=== PATIENT | female | born 1945 | race Caucasian/White ===

== ENCOUNTER → 2019-05-24 09:34 | Outpatient (CLI) | payer MEDICARE, BC, SELFPAY ==
[2019-05-24 12:23] LABS: Absolute Lymphocyte Count 1.55 X10^3/uL (0.83-4.51); Absolute Neutrophil Count 4.3 X10^3/uL (2.0-7.7); Basophil# 0.07 X10^3/uL; Basophil% 1.1 % (0-1); Eosinophil# 0.28 X10^3/uL; Eosinophils% 4.2 % (0-5); Hematocrit 43.6 % (37-47); Hemoglobin 14.3 g/dL (12.0-15.0); Lymphocyte # 1.55 X10^3/ul (4.0); Lymphocyte % 23.4 % (19-41); Mean Corp Hgb Conc 32.8 g/dL (32-36); Mean Corpuscular Hgb 31.9 pg (27.0-32.0); Mean Corpuscular Volume 97.3 fL (81-99); Mean Platelet Vol. 11.8 fl (6.2-12.0); Monocyte# 0.45 X10^3/uL; Monocyte% 6.8 % (0-10); NRBC Flagged by Analyzer 0 % (0-5); Neutrophil # 4.25 X10^3/uL (2.7-7.7); Neutrophil % 64.2 % (47-70); Platelet Count 233 K/mm3 (150-450); RBC Distribution Width CV 11.9 % (11.6-14.6); RBC Distribution Width SD 42.5 fl (35.1-43.9); Red Blood Count 4.48 M/mm3 (4.2-5.4); White Blood Count 6.6 K/mm3 (4.4-11.0)
[2019-05-24 12:42] LABS: ALB/GLOB Ratio 0.9 RATIO (0.9-2.4); AST(SGOT) 16 U/L (15-37); Alanine Aminotransfer ALT/SGPT 23 U/L (13-56); Albumin, Serum 3.4 g/dL (3.2-5.0); Alkaline Phosphatase 85 U/L (45-117); Anion Gap 10 (5-15); BUN 27 mg/dL (7-18); Calcium,Total 8.4 mg/dL (8.5-10.1); Chloride 110 mmol/L (98-107); Cholesterol 171 mg/dL (200); EST Glomerular Filtration Rate 65 mL/min (>60); Est Glom Filt Rate - Afr Amer 79 mL/min (>60); Globulin 3.7 g/dL (2.2-4.2); Glucose 147 mg/dL (74-106); High Density Lipoprotein 50 mg/dL; Potassium 3.9 mmol/L (3.5-5.1); Protein, Total 7.1 g/dL (6.4-8.2); Sodium Level 142 mmol/L (136-145); Thyroid Stim Hormone (TSH) 0.86 uIU/mL (0.358-3.74); Triglycerides 109 mg/dL; Very Low Density Lipoprotein 22 mg/dL (5-40)
== END ==
PROVIDERS: Visit Provider Family Medicine
DX: E11.9 Type 2 diabetes mellitus without complications (principal); I10 Essential (primary) hypertension
CPT/HCPCS: 36415; 80053; 80061; 84443; 85025

== ENCOUNTER → 2020-04-03 09:30 | Outpatient (CLI) | payer MEDICARE, BC, SELFPAY ==
--- NOTE | 2020-04-03 09:34 | BI_ITS ---
MAMMOGRAPHY - BILATERAL DIAGNOSTIC REASON FOR EXAM: Female, 74 years old. FAM HX MOTHER AGE 50S, SISTER AGE 60 -- RT PAIN 3 WEEKS AGO -ENTIRE BREAST -PAIN HAS SUBSIDED -- NO SX -- LT KERATOSIS MARKED -- NO PRIORS AVAILABLE PERTINENT HISTORY: Non-contributory. TECHNIQUE: Digital examination. Mediolateral oblique (MLO) and craniocaudad (CC) views of both breasts were obtained, along with 3-D tomosynthesis. CAD: CAD was performed on this study. COMPARISON: None. FINDINGS: Breast Composition: There are scattered areas of fibroglandular density. There are no dominant masses or suspicious calcifications. No other significant abnormalities are identified. However, because the patient complains of right breast pain and there is a subtle asymmetric density in the central right breast, further evaluation with ultrasound recommended. No suspicious findings in the left breast. BI/DIAG MAMM W/CAD, BILAT IMPRESSION: Further ultrasonographic evaluation recommended, as described above. Recall Side: Right Breast ASSESSMENT CATEGORY: BIRADS Category 0: Incomplete. Need additional imaging evaluation. A letter regarding these results will be sent to the patient by the facility within 30 days. FOLLOW UP RECOMMENDATION: Ultrasound Recommended. (I) Approximately 10% of breast cancers are not detected by mammography. A normal mammogram should not delay biopsy of a clinically suspicious abnormality. Electronically Signed: Kenn Vidal MD at 12:39 EDT , Service support ,
--- NOTE | 2020-04-03 09:34 | US_ITS ---
STUDY: ULTRASOUND BREAST - RIGHT REASON FOR EXAM: Female, 74 years old. Pain TECHNIQUE: Axial and longitudinal images of the RIGHT breast were performed with a high resolution ultrasound transducer. # OF IMAGES: 43 COMPARISON: None. FINDINGS: RIGHT Breast: Sonographic evaluation of the right breast shows normal dense fibroglandular tissue. There are no suspicious shadowing solid lesion or architectural distortion. There is a hypoechoic lymph node at 10:00 measuring 0.5 x 0.6 x 0.2 cm. US/Breast Limited Unilateral IMPRESSION: No suspicious sonographic findings ASSESSMENT CATEGORY: BIRADS Category 2: Benign. A letter regarding these results will be sent to the patient by the facility within 30 days. Electronically Signed: Kenn Vidal MD at 12:37 EDT , Service support ,
== END ==
PROVIDERS: PCP Family Medicine; Referring Provider Family Medicine; Visit Provider Family Medicine
DX: N64.4 Mastodynia (principal)
CPT/HCPCS: 76642; 77062; 77066; G0279

== ENCOUNTER → 2022-04-25 | Outpatient (CLI) | payer MEDICARE, BC, SELFPAY ==
[2022-04-25 12:13] LABS: Absolute Lymphocyte Count 2.41 X10^3/uL (0.83-4.51); Absolute Neutrophil Count 5.5 X10^3/uL (2.0-7.7); Basophil# 0.08 X10^3/uL; Basophil% 0.9 % (0-1); Eosinophil# 0.34 X10^3/uL; Eosinophils% 3.8 % (0-5); Hematocrit 44.3 % (37-47); Hemoglobin 14.5 g/dL (12.0-15.0); Lymphocyte # 2.41 X10^3/ul (0.83-4.51); Lymphocyte % 26.9 % (19-41); Mean Corp Hgb Conc 32.7 g/dL (32-36); Mean Corpuscular Hgb 31.3 pg (27.0-32.0); Mean Corpuscular Volume 95.7 fL (81-99); Mean Platelet Vol. 11.3 fl (6.2-12.0); Monocyte# 0.54 X10^3/uL; NRBC Flagged by Analyzer 0 % (0-5); Neutrophil # 5.54 X10^3/uL (2.7-7.7); Platelet Count 257 K/mm3 (150-450); RBC Distribution Width CV 12.3 % (11.6-14.6); RBC Distribution Width SD 43.1 fl (35.1-43.9); Red Blood Count 4.63 M/mm3 (4.2-5.4)
[2022-04-25 12:25] LABS: ALB/GLOB Ratio 0.8 RATIO (0.9-2.4); AST(SGOT) 19 U/L (15-37); Alanine Aminotransfer ALT/SGPT 21 U/L (13-56); Albumin, Serum 3.4 g/dL (3.2-5.0); Alkaline Phosphatase 89 U/L (45-117); Anion Gap 8 (5-15); BUN 19 mg/dL (7-18); BUN/Creat Ratio 17.4 RATIO (10-20); Calcium,Total 8.9 mg/dL (8.5-10.1); Chloride 107 mmol/L (98-107); Cholesterol 220 mg/dL (200); Creatinine, Serum 1.09 mg/dL (0.55-1.02); EST Glomerular Filtration Rate 52 mL/min (>60); Est Glom Filt Rate - Afr Amer 63 mL/min (>60); Glucose 205 mg/dL (74-106); High Density Lipoprotein 46 mg/dL; Potassium 3.9 mmol/L (3.5-5.1); Protein, Total 7.4 g/dL (6.4-8.2); Sodium Level 138 mmol/L (136-145); Triglycerides 191 mg/dL; Very Low Density Lipoprotein 38 mg/dL (5-40)
== END | disposition home or self-care (01) ==
LOC: MTLAB 11:03
PROVIDERS: PCP Family Medicine; Referring Provider Family Medicine; Visit Provider Family Medicine
DX: E11.9 Type 2 diabetes mellitus without complications (principal); I10 Essential (primary) hypertension
CPT/HCPCS: 36415; 80053; 80061; 85025

== ENCOUNTER → 2022-05-17 | Outpatient (CLI) | payer MEDICARE, BC, SELFPAY ==
--- NOTE | 2022-05-17 10:05 | US_ITS ---
EXAM: US ABDOMEN LIMITED, RIGHT UPPER QUADRANT CLINICAL INDICATION: RUQ PAIN TECHNIQUE: Real-time ultrasound of the right upper quadrant with image documentation. This report was created using [employer] report generation technology. COMPARISON: None. FINDINGS: LIVER: The liver measures 17.8 cm. The liver is increased in echogenicity compatible fatty infiltration. No intrahepatic biliary ductal dilation. GALLBLADDER: Gallbladder wall measures 2 mm. No shadowing gallstone. No pericholecystic fluid. Negative sonographic Cisneros''s sign. COMMON BILE DUCT: Common bile duct measures 3 mm. The proximal common bile duct is within normal limits for the patient''s age. PANCREAS: Unremarkable as visualized. No focal abnormality is demonstrated in the pancreas. No pancreatic ductal dilatation. RIGHT KIDNEY: The right kidney measures 10.4 x 4.8 x 5.3 cm. There is a 4 x 9 mm nonobstructing stone in the right kidney. There is a 9 x 9 mm cyst in the right kidney. US/Abdomen Limited IMPRESSION: Fatty infiltration of the liver. There are small right renal cysts and a nonobstructing stone. No acute abnormalities are identified. Electronically Signed: Aden Berrios MD at 12:28 EDT ,
== END | disposition home or self-care (01) ==
LOC: US 09:59
PROVIDERS: PCP Family Medicine; Visit Provider Family Medicine
DX: R10.11 Right upper quadrant pain (principal)
CPT/HCPCS: 76705

== ENCOUNTER → 2022-05-28 | Outpatient (CLI) | payer MEDICARE, BC, SELFPAY ==
--- NOTE | 2022-05-28 08:01 | CT_ITS ---
INDICATION: ABD PAIN EXAMINATION: CT ABDOMEN AND PELVIS WITH CONTRAST - CT Abdomen And Pelvis W/ Contrast Injection TECHNIQUE: Helically acquired images were obtained of the abdomen and pelvis following IV contrast. A radiation dose optimization technique was used for this scan. IV Contrast dosage and agent: 100 mL of [id number]. Oral contrast: YES, Redicat. COMPARISON: None. FINDINGS: LOWER CHEST: Lung bases are clear. No cardiomegaly or pericardial effusion. LIVER: Homogeneous. No focal mass. GALLBLADDER AND BILIARY TREE: Suggestion of multiple noncalcified stones within the neck of the gallbladder. No gallbladder distension or wall edema. No intra- or extrahepatic biliary ductal dilation. PANCREAS: Atrophic changes visualized in the pancreas. No focal cystic or solid mass. SPLEEN: A 3.8 cm low-attenuation lesion suggestive of a cyst with a thick calcified capsule is visualized on sagittal series 602 image 124 in the left upper quadrant along the anterior superior aspect of the spleen adjacent to a focal wedge-shaped area of low attenuation seen on coronal series 602 image 131. Normal size without focal cystic or solid mass. ADRENAL GLANDS: No nodules. KIDNEYS AND URETERS: Bilateral parapelvic cysts are visualized. Mild fullness visualized in the extrarenal pelvis is visualized bilaterally, subtle increased attenuation visualized in the right extrarenal pelvis. A cortical defect is visualized in the lateral aspect of the midpole of the right kidney visualized on axial series 2 image 46 with a coarse overlying calcification measuring approximately 0.6 cm. Normal renal size and position. No hydronephrosis. Focal soft tissue prominence visualized in the mid right ureter with wall enhancement seen on axial series 2 image 71, no evidence of obstructing stone is visualized. Note is made that the distal ureters not visualized due to extensive streak artifact from the bilateral hip prosthesis. PERITONEUM: No ascites or free air. No other fluid collection. BOWEL: Marked thickening of the wall of the stomach is visualized most prominent in the distal stomach. 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 The remainder of the small bowel loops demonstrate no acute pathology. The appendix is visualized and is unremarkable. Abundance of stool visualized in the large bowel, scattered diverticular disease is visualized. Marked thickening of the wall of the rectosigmoid with extensive diverticular disease is visualized on axial series 2 image 86 but no significant stranding of the adjacent fat planes is seen to suggest acute diverticulitis. The appendix is visualized and is unremarkable. No stomach or bowel distension. No focal inflammatory change. LYMPH NODES: No enlarged mesenteric or retroperitoneal lymph nodes. VESSELS: Aorta is non-dilated. URINARY BLADDER: Thickening of the wall of the urinary bladder is visualized. Subtle prominent visualization of the bladder due to extensive streak artifact, ureterovesical junctions and distal ureters are not visualized. REPRODUCTIVE ORGANS: Limited evaluation of the pelvis due to streak artifact. ABDOMINAL WALL: No discrete abdominal or pelvic wall hernia. BONES: Extensive degenerative bone changes visualized. No lytic or blastic abnormality. Bilateral hip prosthesis visualized with streaky artifact obscuring the pelvis. 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 Subtle prominence and irregularity seen in the right extrarenal pelvis and the right mid ureter would recommend further evaluation to rule out masses. Extensive bowel wall thickening and diverticular disease visualized in the sigmoid colon but no evidence of acute diverticulitis is visualized. Abundance of stool in the large bowel. 3.8 cm thick walled calcified cyst visualized in the left upper quadrant. Electronically Signed: Clayton Peralta MD at 8:46 EDT ,
[2022-05-28 08:25] LABS: CREATININE FINGERSTICK 1.3 mg/dL (0.55-1.02)
== END | disposition home or self-care (01) ==
LOC: CT 07:59
PROVIDERS: PCP Family Medicine; Referring Provider Family Medicine; Visit Provider Family Medicine
DX: R10.11 Right upper quadrant pain (principal); E11.9 Type 2 diabetes mellitus without complications
CPT/HCPCS: 74177; Q9967

== ENCOUNTER 2022-07-13 03:21 | Inpatient (IN) | payer MEDICARE, BC, SELFPAY ==
[2022-07-13] VITALS (12 sets, daily range): BP systolic 119–165; BP diastolic 73–89; PULSE 100–122; RESP 16–26; TEMP 36.3–37.4; O2SAT 88–98; BMI 29.0
--- NOTE | 2022-07-13 03:39 | CT_ITS ---
STUDY: CT ABDOMEN AND PELVIS WITHOUT CONTRAST REASON FOR EXAM: Female, 76 years old. LEFT flank pain RADIATION DOSAGE (If Supplied By Facility): CTDIvol = ( 14.07 ) mGy, DLP = ( 678.25 ) mGycm TECHNIQUE: Transaxial images were obtained from the dome of the diaphragm to the symphysis pubis without oral contrast, and without intravenous contrast. Sagittal and coronal images were reconstructed. Individualized dose optimization techniques were used for this CT. COMPARISON: 05/28/2022 FINDINGS: The visualized lung bases are unremarkable. The visualized portions of the heart are within normal limits. Hypoattenuating liver. Normal gallbladder and extrahepatic biliary system. Calcified splenic nodule redemonstrated Normal pancreas. Normal bilateral adrenal glands. Right renal parenchymal calcification. Left renal sinus cysts. No definite finding of hydronephrosis. No finding of urinary calculus. Normal visualized stomach. Normal small intestine. Descending and sigmoid colon diverticula with associated inflammatory stranding. The appendix is visualized and appears normal. Normal abdominal aorta. Normal inferior vena cava. Normal retroperitoneum. Small gas in the urinary bladder. There are prostatic calcifications. Susceptibility artifact from bilateral hip arthroplasties complicated evaluation of the pelvis. Normal abdominal wall. Thoracolumbar scoliosis and degenerative change. CT/Abdomen/Pelvis without Cont IMPRESSION: 1. Acute, uncomplicated descending/sigmoid diverticulitis. 2. Small gas in the urinary bladder. Correlate with recent instrumentation. 3. Hepatic steatosis. Electronically Signed: Albino Pagan MD at 4:52 EDT ,
--- NOTE | 2022-07-13 03:41 | EDS_ITS ---
HPI History of Present Illness Chief Complaint: Abd Pain Informant: patient Onset/Context/Timing Onset: Yesterday Current Severity: Moderate Maximum Severity: Moderate Narrative Narrative: Patient presents with left lower quadrant abdominal pain that started at 10 PM last evening. She tried taking ibuprofen without improvement. She did fall 3 days ago but denies striking her abdomen on anything. She denies urinary symptoms. [facility] Medical History Cholelithiasis with chronic cholecystitis Diabetes Sigmoid diverticulosis Home Medications ibuprofen 200 mg tablet 200 mg PO QHS PRN Pain (Scale Score 4-6) 05/30/22 [History Last Taken Unknown] metformin 1,000 mg tablet 1,000 mg PO BID 05/30/22 [History Last Taken Unknown] amoxicillin 875 mg-potassium clavulanate 125 mg tablet 1 tab PO BID #20 tabs 07/13/22 [Rx Last Taken Unknown] hydrocodone-acetaminophen 5-325mg 5mg-325mg 1 tab PO Q6H PRN pain 3 days #10 tabs 07/13/22 [Rx Last Taken Unknown] sulfamethoxazole 800 mg-trimethoprim 160 mg tablet (Bactrim DS) 1 tab PO BID #6 tabs 07/13/22 [Rx Last Taken Unknown] Allergy/AdvReac Type Severity Reaction Status Date / Time No Known Allergies Allergy Verified 07/13/22 03:25 Family History Mother Breast cancer Social History Smoking Status: Never smoker alcohol intake: never substance use type: does not use ROS ROS ED Constitutional Constitutional ED: Denies chills or fever(s) Eyes Eyes: Denies change in vision or discharge from eye(s) ENT ENT ED: Denies discharge from eye(s), rhinorrhea or sore throat Cardiovascular Cardiovascular: Denies chest pain or palpitations Respiratory/Chest Respiratory/Chest: Denies cough or dyspnea Gastrointestinal Gastrointestinal: Reports abdominal pain; Denies diarrhea, nausea or vomiting Genitourinary Genitourinary ED: Denies difficulty urinating or dysuria Musculoskeletal Musculoskeletal: Denies back pain or extremity pain Integumentary Denies Abrasions or rash Neurologic Neurologic: Denies headache(s) or weakness Psychiatric Psychiatric: Denies anxiety or depression Allergic/Immunologic Allergic/Immunologic ED: Denies lip swelling or urticaria EXAM Physical Exam Const Vital Signs: 07/13/22 03:22 07/13/22 05:49 07/13/22 06:15 Temperature 98.2 F 97.3 F L Temperature Source Temporal Oral Pulse Rate 122 H 120 H Respiratory Rate 16 22 H Blood Pressure 165/89 H Blood Pressure Mean 114 Pulse Ox 95 88 Oxygen Delivery Method Room Air Room Air Oxygen Flow Rate (L/min) 07/13/22 06:37 Temperature Temperature Source Pulse Rate 114 H Respiratory Rate 24 H Blood Pressure 152/88 H Blood Pressure Mean 109 Pulse Ox 93 Oxygen Delivery Method Nasal Cannula Oxygen Flow Rate (L/min) 2 Positive well nourished and well developed General Appearance ED: well developed HEENT Reports normocephalic and head/scalp atraumatic Eyes PERRL and EOMs intact bilaterally Neck supple Chest Wall inspection of chest normal and palpation of chest normal Resp normal respiratory effort and clear to auscultation bilaterally Cardio regular rate and regular rhythm GI GI Narrative: Soft with moderate tenderness location in the left lower quadrant. No guarding or rebound. Hypoactive but present bowel sounds are noted. Palpation: soft Extremity normal to inspection Neuro oriented x3 and no sensory deficits noted Sensorium / Orientation: alert Motor Exam: strength 5/5 throughout Psych mental status grossly normal Skin no rashes or lesions noted MDM MDM MDM Narrative Medical decision making narrative: Patient was given fentanyl and Zofran for pain. IV fluids given. Lab work and urinalysis ordered along with a CT flank. Lab Data Attestation: I reviewed the patient's lab results. Labs: Laboratory Results - last 24 hr 07/13/22 07/13/22 07/13/22 03:50 03:50 04:30 WBC 16.3 H RBC 4.35 Hgb 13.9 Hct 41.4 MCV 95.2 MCH 32.0 MCHC 33.6 RDW Std Deviation 42.5 RDW Coeff of [place] 12.2 Plt Count 245 MPV 11.0 Immature Gran % (Auto) 0.500 Neut % (Auto) 84.8 H Lymph % (Auto) 8.6 L [place] % (Auto) 4.0 Eos % (Auto) 1.9 Baso % (Auto) 0.2 Absolute Neuts (auto) 13.8 H Absolute Lymphs (auto) 1.40 Nucleated RBC % 0 Sodium 137 Potassium 4.6 Chloride 103 Carbon Dioxide 25.0 Anion Gap 9 BUN 19 H Creatinine 1.42 H Estim Creat Clear Calc 27.88 Est GFR (MDRD) Af Amer 46 L Est GFR (MDRD) Non-Af 38 L BUN/Creatinine Ratio 13.4 Glucose 246 H Lactic Acid Calcium 8.7 Urine Color Yellow Urine Clarity Sl. Cloudy Urine pH 6.5 Ur Specific [place] 1.010 Urine Protein 30 H Urine Glucose (UA) 250 H Urine Ketones 5 H Urine Occult Blood 10 H Urine Nitrite Positive H Urine Bilirubin Negative Urine Urobilinogen Normal Ur Leukocyte Esterase 500 H Urine RBC 0-5 SEEN Urine WBC 50-100 SEEN Ur Squamous Epith Cells 10-25 SEEN Urine Bacteria 4+ Urine Mucus 0 SEEN 07/13/22 06:25 WBC RBC Hgb Hct MCV MCH MCHC RDW Std Deviation RDW Coeff of Fred[place] Plt Count MPV Immature Gran % (Auto) Neut % (Auto) Lymph % (Auto) [place] % (Auto) Eos % (Auto) Baso % (Auto) Absolute Neuts (auto) Absolute Lymphs (auto) Nucleated RBC % Sodium Potassium Chloride Carbon Dioxide Anion Gap BUN Creatinine Estim Creat Clear Calc Est GFR (MDRD) Af Amer Est GFR (MDRD) Non-Af BUN/Creatinine Ratio Glucose Lactic Acid 3.3 H* Calcium Urine Color Urine Clarity Urine pH Ur Specific [place] Urine Protein Urine Glucose (UA) Urine Ketones Urine Occult Blood Urine Nitrite Urine Bilirubin Urine Urobilinogen Ur Leukocyte Esterase Urine RBC Urine WBC Ur Squamous Epith Cells Urine Bacteria Urine Mucus Radiography Diagnostic Testing: Clinical Impression(s) from Imaging Studies Abdomen/Pelvis CT 07/13/22 03:39 IMPRESSION: 1. Acute, uncomplicated descending/sigmoid diverticulitis. 2. Small gas in the urinary bladder. Correlate with recent instrumentation. 3. Hepatic steatosis. Electronically Signed: Albino Pagan MD at 4:52 EDT , Treatment and Re-Evaluation Narrative: White blood cell count elevated at 16.3 with left shift. Chemistry studies reveal a BUN of 19 and creatinine 1.42. This is slightly above her baseline. Glucose is 246. Urinalysis reveals positive nitrites with 50-100 white cells and 4+ bacteria. Urine culture has been sent. CT flank reveals acute uncomplicated descending/sigmoid diverticulitis. There is a small amount of gas in the urinary bladder. I believe this is likely secondary to gas producing bacterial infection. I did speak with the radiologist. He does not see any evidence of a fistula and it appears the bladder and colon are not adherent to each other. Test results discussed with the patient and at bedside. She will be given a 3-day course of Bactrim to cover her urine. She will be given a 10-day course of Augmentin for her diverticulitis. Should urine culture reveal need for another antibiotic she will be called and this will be changed. Patient will also be given a short course of [place] to help control pain. Addendum: Patient was given oral pain medication along with antibiotics. Nursing staff got her up to the bedside commode to urinate prior to discharge. Stated that her heart rate went up to 122 and she had difficulty moving secondary to pain. We put her back in bed but her heart rate remained elevated above 110. At that time IV line is reestablished. She is given IV fluids and lactic acid is obtained. This returns elevated at 3.3. EKG obtained and reveals sinus tachycardia at 110 with occasional PVCs. No acute ischemia. I discussed with the patient that I do feel given her increased heart rate now and elevated lactic acid we should keep her in the hospital for further treatment. She is requesting something for pain and will be given a dose of morphine. I will speak with the hospitalist regarding admission. Discharge Plan Triage Chief Complaint: Abd Pain Other Complaint: Lower Extremity Injury ED Provider: Julieta Hyman Dx/Rx/DC Orders Clinical Impression: UTI (urinary tract infection), Diverticulitis, Sepsis Prescriptions: New sulfamethoxazole-trimethoprim [Bactrim DS] 800-160 mg tablet 1 tab PO BID Qty: 6 0RF amoxicillin-pot clavulanate 875-125 mg tablet 1 tab PO BID Qty: 20 0RF hydrocodone-acetaminophen 5-325 mg tablet 1 tab PO Q6H PRN (Reason: pain) 3 Days Qty: 10 0RF No Action metformin 1,000 mg tablet 1,000 mg PO BID ibuprofen 200 mg tablet 200 mg PO QHS PRN (Reason: Pain (Scale Score 4-6)) Primary Care Provider: Jocelyn Blood Referrals: Jocelyn Blood MD [Primary Care Provider] - 5-7 Days Disposition Disposition: Acute Care Hospital [facility]
[2022-07-13] MEDS: 0.9% Normal Saline 1,000 ML 150 ML IV ×4 (03:56→20:14)
[2022-07-13] MEDS: Ondansetron 4 MG/2 ML Vial IV ×2 (03:56→08:03)
[2022-07-13] MEDS: fentaNYL 100 MCG/2 ML Ampul 25 MCG IV (03:58)
[2022-07-13 03:59] LABS: Absolute Neutrophil Count 13.8 X10^3/uL (2.0-7.7); Basophil# 0.04 X10^3/uL; Basophil% 0.2 % (0-1); Eosinophil# 0.31 X10^3/uL; Eosinophils% 1.9 % (0-5); Hematocrit 41.4 % (37-47); Hemoglobin 13.9 g/dL (12.0-15.0); Lymphocyte % 8.6 % (19-41); Mean Corp Hgb Conc 33.6 g/dL (32-36); Mean Corpuscular Volume 95.2 fL (81-99); Monocyte# 0.66 X10^3/uL; NRBC Flagged by Analyzer 0 % (0-5); Neutrophil # 13.84 X10^3/uL (2.7-7.7); Neutrophil % 84.8 % (47-70); Platelet Count 245 K/mm3 (150-450); RBC Distribution Width CV 12.2 % (11.6-14.6); RBC Distribution Width SD 42.5 fl (35.1-43.9); Red Blood Count 4.35 M/mm3 (4.2-5.4); White Blood Count 16.3 K/mm3 (4.4-11.0)
[2022-07-13 04:32] LABS: Anion Gap 9 (5-15); BUN 19 mg/dL (7-18); BUN/Creat Ratio 13.4 RATIO (10-20); Calcium,Total 8.7 mg/dL (8.5-10.1); Chloride 103 mmol/L (98-107); Creatinine, Serum 1.42 mg/dL (0.55-1.02); EST Glomerular Filtration Rate 38 mL/min (>60); Est Glom Filt Rate - Afr Amer 46 mL/min (>60); Estimated Creatinine Clearance 27.88 ml/min; Glucose 246 mg/dL (74-106); Potassium 4.6 mmol/L (3.5-5.1); Sodium Level 137 mmol/L (136-145)
[2022-07-13 04:42] LABS: Mucous, Urine 0 SEEN /hpf (<or=2+)
[2022-07-13 04:57] LABS: Color, Urine Yellow (Yellow); Glucose, Dipstick 250 mg/dl (Normal); Ketone-Dipstick 5 mg/dl (Negative); Leukocyte Esterase-Dipstick 500 /ul (Negative); Nitrite-Dipstick Positive (Negative); Occult Blood-Urine 10 /ul (Negative); Protein-Dipstick 30 mg/dl (Negative); Urine Bilirubin Dipstick Negative (Negative); Urine Clarity Sl. Cloudy (Clear); Urine Urobilinogen Normal (Normal); Urine pH 6.5 (5.0 - 8.0)
[2022-07-13 05:05] LABS: Bacteria 4+ /hpf (None Seen); Red Blood Cells-Urine 0-5 SEEN /hpf (0-5); Squamous Epithelial Cells - UA 10-25 SEEN /hpf (5-10); White Blood Cells 50-100 SEEN /hpf (0-5)
[2022-07-13] MEDS: Smz/Tmp Ds Tablet 1 TABLET PO (05:42)
[2022-07-13] MEDS: Amox/Clavulanate 500 MG Tablet PO (05:43)
[2022-07-13] MEDS: HYDROcodone Bitartrate/Apap 5/325 Tablet PO (05:43)
--- NOTE | 2022-07-13 06:15 | RAD_ITS ---
EXAM: XR CHEST, 1 VIEW CLINICAL INDICATION: sob TECHNIQUE: Frontal view of the chest. This report was created using [employer] report generation technology. COMPARISON: None. FINDINGS: LUNGS AND PLEURAL SPACES: Unremarkable. No consolidation or edema. No pneumothorax. No effusion. HEART: Unremarkable. Cardiac silhouette not enlarged. MEDIASTINUM: Central airways and mediastinal contour are unremarkable. BONES/JOINTS: Unremarkable. SOFT TISSUES: Unremarkable. UPPER ABDOMEN: There is a rounded calcific density in the left upper quadrant of the abdomen which may represent a calcified splenic cyst. RAD/Chest 1 View (Portable) IMPRESSION: No acute findings in the chest. Electronically Signed: Aden Berrios MD at 8:13 EDT ,
[2022-07-13 07:30] LABS: Lactic Acid 3.3 mmol/L (0.4-1.9)
[2022-07-13] MEDS: 0.9% Normal Saline 1,000 ML 999 ML IV (08:03)
[2022-07-13] MEDS: Morphine 4 MG/ML Syringe IV (08:03)
--- NOTE | 2022-07-13 08:15 | PCM.HP.STD ---
HPI - General General Date of Admission: 07/13/22 HPI Narrative JANETTE MAGANA, is a 76 F who presents to the hospital with left lower quadrant abdominal pain that started last night after dinner. She did try taking an NSAID without any improvement in her pain. In the ER she was found to have a leukocytosis and CT scan demonstrated diverticulitis. But UA also demonstrated a UTI. Based on vital signs and the fact that she has Medicare she has sepsis. [facility] Medical History Cholelithiasis with chronic cholecystitis Diabetes Sigmoid diverticulosis Home Medications ibuprofen 200 mg tablet 200 mg PO QHS PRN Pain (Scale Score 4-6) 05/30/22 [History Last Taken 07/12/22 22:00] metformin 1,000 mg tablet 1,000 mg PO BID Check with primary doctor 05/30/22 [History Last Taken 07/13/22 08:00] hydrocodone-acetaminophen 5-325mg 5mg-325mg 1 tab PO Q6H PRN pain 3 days #10 tabs 07/13/22 [Rx Last Taken Unknown] Allergy/AdvReac Type Severity Reaction Status Date / Time No Known Allergies Allergy Verified 07/13/22 03:25 Family History Mother Breast cancer Surgical History no surgical history no surgical history Social History Smoking Status: Never smoker alcohol intake: never substance use type: does not use ROS Constitutional Constitutional: Denies chills, fatigue, fever(s) or malaise Eyes Eyes: Denies blurry vision ENT HEENT: Denies headache(s) or nasal discharge Cardiovascular Cardiovascular: Denies chest pain, dyspnea on exertion or syncope Respiratory/Chest Respiratory/Chest: Denies cough, shortness of breath at rest or shortness of breath with exertion Gastrointestinal Gastrointestinal: Reports abdominal pain; Denies constipation, diarrhea, nausea or vomiting Genitourinary Genitourinary: Denies dysuria Neurologic Neurologic: Denies focal weakness, numbness or tremor(s) Psychiatric Psychiatric: Denies anxiety or depression Vital Signs Vital Signs Vital Signs: 07/13/22 03:22 07/13/22 05:49 07/13/22 06:15 Temperature 98.2 F 97.3 F L Temperature Source Temporal Oral Pulse Rate 122 H 120 H Respiratory Rate 16 22 H Blood Pressure 165/89 H Blood Pressure Mean 114 Pulse Ox 95 88 Oxygen Delivery Method Room Air Room Air Oxygen Flow Rate (L/min) 07/13/22 06:37 07/13/22 08:02 Temperature 99.3 F H Temperature Source Oral Pulse Rate 114 H 106 H Respiratory Rate 24 H 22 H Blood Pressure 152/88 H 125/77 H Blood Pressure Mean 109 93 Pulse Ox 93 95 Oxygen Delivery Method Nasal Cannula Nasal Cannula Oxygen Flow Rate (L/min) 2 2 Weight Weight: 164 lb 3.91 oz Body Mass Index (BMI) 29.0 Physical Exam Narrative General: Alert, Oriented x3, Cooperative, No apparent distress HEENT: Atraumatic, PERRLA, EOMI, Normocephalic Oral: Moist Mucosa Neck: Supple, No JVD Lungs: Clear to auscultation, Normal air movement, No rhonchi, No wheeze, No rales Cardiovascular: Tachycardic, Regular Rhythm, Normal S1, Normal S2, No murmurs Abdomen: Soft, left lower quadrant tenderness to palpation, Non-Distended, No Hepato-splenomegaly Extremities: No edema, Capillary Refill Less than 3 Seconds Skin: No rashes, No breakdown Musculoskeletal: No Tenderness to Palpation of Joints or Extremities Neurological: Cranial nerves II-XII grossly intact, Motor Exam 5/5 strength throughout, Sensory exam intact to light touch and pain Psych/Mental Status: Normal Affect, Appropriate Results Lab / Micro Data Result Diagrams: 07/13/22 03:50 07/13/22 03:50 Labs: Laboratory Results - last 24 hr 07/13/22 03:50: WBC 16.3 H, RBC 4.35, Hgb 13.9, Hct 41.4, MCV 95.2, MCH 32.0, MCHC 33.6, RDW Std Deviation 42.5, RDW Coeff of Fredo 12.2, Plt Count 245, MPV 11.0, Immature Gran % (Auto) 0.500, Neut % (Auto) 84.8 H, Lymph % (Auto) 8.6 L, [place] % (Auto) 4.0, Eos % (Auto) 1.9, Baso % (Auto) 0.2, Absolute Neuts (auto) 13.8 H, Absolute Lymphs (auto) 1.40, Nucleated RBC % 0 07/13/22 03:50: Sodium 137, Potassium 4.6, Chloride 103, Carbon Dioxide 25.0, Anion Gap 9, BUN 19 H, Creatinine 1.42 H, Estim Creat Clear Calc 27.88, Est GFR (MDRD) Af Amer 46 L, Est GFR (MDRD) Non-Af 38 L, BUN/Creatinine Ratio 13.4, Glucose 246 H, Calcium 8.7 07/13/22 04:30: Urine Color Yellow, Urine Clarity Sl. Cloudy, Urine pH 6.5, Ur Specific [place] 1.010, Urine Protein 30 H, Urine Glucose (UA) 250 H, Urine Ketones 5 H, Urine Occult Blood 10 H, Urine Nitrite Positive H, Urine Bilirubin Negative, Urine Urobilinogen Normal, Ur Leukocyte Esterase 500 H, Urine RBC 0-5 SEEN, Urine WBC 50-100 SEEN, Ur Squamous Epith Cells 10-25 SEEN, Urine Bacteria 4+, Urine Mucus 0 SEEN 07/13/22 06:25: Lactic Acid 3.3 H* Radiology Impression Abdomen/Pelvis CT 07/13/22 03:39 IMPRESSION: 1. Acute, uncomplicated descending/sigmoid diverticulitis. 2. Small gas in the urinary bladder. Correlate with recent instrumentation. 3. Hepatic steatosis. Electronically Signed: Albino Pagan MD at 4:52 EDT , Chest X-Ray 07/13/22 06:15 IMPRESSION: No acute findings in the chest. Electronically Signed: Aden Berrios MD at 8:13 EDT , Assessment & Plan Assessment/Plan (1) UTI (urinary tract infection): (2) Diverticulitis: (3) Sepsis: PLAN: Plan 1. Sepsis secondary to UTI and diverticulitis ? Continue with Cipro and Flagyl ? Continue with IV fluids ? She received sepsis bolus in the ER ? Lactic acid is 3.3, continue to monitor 2. DM2 ? We will continue monitor blood sugar, hold metformin ? Continue sliding scale insulin ? Accu-Cheks AC at bedtime ? We will make adjustments as necessary DVT: Lovenox Sepsis Attestation Sepsis Attestation: Agree w/Sepsis Date exam was performed: 07/13/22 Time exam was performed: 08:15 Possible Source of Sepsis: GI tract/intra-abdominal and Genitourinary Sepsis Organ Dysfunction Criteria Present: Lactic Acid > 2 mmol/L Charges/Coding Visit Charges Inpatient E&M: 83234 Init Hosp L2
--- NOTE | 2022-07-13 08:17 | NURSING ---
MED SURG [place] UTI, DIVERTICULITIS,SEPSIS
[2022-07-13 10:26] LABS: Reflex Lactate? Y
[2022-07-13 11:22] LABS: Lactic Acid 3.1 mmol/L (0.4-1.9)
[2022-07-13] MEDS: Ciprofloxacin 400 MG/200 ML BAG 200 MG IV (11:30)
[2022-07-13] MEDS: Enoxaparin 30 MG/0.3 ML Syringe SC (11:32)
[2022-07-13] MEDS: Morphine 2 MG/ML Syringe IV ×4 (11:58→22:01)
[2022-07-13] MEDS: metroNIDAZOLE 500 MG/100 ML BAG 100 MG IV ×2 (14:18→22:07)
[2022-07-13] MEDS: Insulin Lispro 100 UNIT/ML INSULN.PEN SC ×2 (17:55→21:14)
[2022-07-13 18:10] LABS: Bedside Glucose 160 mg/dL (74-106)
[2022-07-13 21:40] LABS: Bedside Glucose 171 mg/dL (74-106)
[2022-07-13] MEDS: MELATONIN 3 MG TABLET PO (22:01)
[2022-07-13] MEDS: 0.9% Saline Lock 10 ML Syringe IV (22:01)
[2022-07-14] VITALS (8 sets, daily range): BP systolic 127–157; BP diastolic 65–87; PULSE 109–122; RESP 18; TEMP 36.7–38.2; O2SAT 92–95
[2022-07-14] MEDS: Morphine 2 MG/ML Syringe IV ×6 (01:07→19:45)
[2022-07-14] MEDS: 0.9% Saline Lock 10 ML Syringe IV ×3 (01:07→19:45)
[2022-07-14] MEDS: 0.9% Normal Saline 1,000 ML 150 ML IV ×3 (03:11→19:44)
[2022-07-14 05:29] LABS: Absolute Neutrophil Count 12.5 X10^3/uL (2.0-7.7); Hematocrit 38.5 % (37-47); Hemoglobin 12.5 g/dL (12.0-15.0); Mean Corp Hgb Conc 32.5 g/dL (32-36); Mean Corpuscular Volume 98.5 fL (81-99); Mean Platelet Vol. 11.5 fl (6.2-12.0); NRBC Flagged by Analyzer 0 % (0-5); POSITIVE MORPHOLOGY YES; Platelet Count 203 K/mm3 (150-450); RBC Distribution Width CV 12.7 % (11.6-14.6); RBC Distribution Width SD 45.7 fl (35.1-43.9); Red Blood Count 3.91 M/mm3 (4.2-5.4); White Blood Count 13.7 K/mm3 (4.4-11.0)
[2022-07-14] MEDS: metroNIDAZOLE 500 MG/100 ML BAG 100 MG IV ×3 (05:39→21:20)
[2022-07-14 05:42] LABS: Differential Indicated SCAN CRITERIA MET
[2022-07-14 06:16] LABS: Anion Gap 11 (5-15); BUN 17 mg/dL (7-18); BUN/Creat Ratio 13.9 RATIO (10-20); Calcium,Total 7.7 mg/dL (8.5-10.1); Chloride 108 mmol/L (98-107); Creatinine, Serum 1.22 mg/dL (0.55-1.02); EST Glomerular Filtration Rate 46 mL/min (>60); Est Glom Filt Rate - Afr Amer 55 mL/min (>60); Estimated Creatinine Clearance 32.45 ml/min; Glucose 163 mg/dL (74-106); Potassium 3.9 mmol/L (3.5-5.1); Sodium Level 138 mmol/L (136-145)
[2022-07-14 06:22] LABS: Scan Smear per Review Criteria MANUAL DIFF
[2022-07-14 06:26] LABS: Basophil 1 % (0-1); Lymphocyte 4 % (19-41); Metamyelocyte 9 % (0-1); Monocyte 4 % (0-10); Neutrophil-Band 21 % (0-5); Neutrophil-Segmented 61 % (47-70); Total Cells Counted 100 (MANUAL DIFF)
[2022-07-14 06:28] LABS: Absolute Lymphocyte Count 0.55 X10^3/uL (0.83-4.51); Lymphocyte # 0.55 X10^3/ul (0.83-4.51); Neutrophil # 12.48 X10^3/uL (2.7-7.7); Platelet Estimate ADEQUATE (ADEQ)
[2022-07-14 06:29] LABS: Red Cell Morphology NORM C+C NORMAL (NORM C&C)
[2022-07-14] MEDS: Insulin Lispro 100 UNIT/ML INSULN.PEN SC ×3 (06:41→15:40)
[2022-07-14 07:05] LABS: Bedside Glucose 162 mg/dL (74-106)
--- NOTE | 2022-07-14 07:35 | PN.HOSP_ITS ---
Subjective Subjective Patient is a 76-year-old lady admitted with lower abdominal pain imaging studies obtained on admission demonstrated acute uncomplicated descending/sigmoid diverticulitis admitted to regular nursing floor for further management Objective Data Objective Data Vital Signs: Vital Signs Temp Pulse Resp BP Pulse Ox O2 Del Method O2 Flow Rate 98.6 F 109 H 18 136/65 H 93 Nasal Cannula 4 07/14/22 06:30 07/14/22 06:30 07/14/22 06:30 07/14/22 06:30 07/14/22 06:30 07/14/22 06:30 07/14/22 03:29 Oxygen Flow Rate (L/min) 4 Oxygen Delivery Method Nasal Cannula Weight: 74.5 kg Body Mass Index (BMI) 29.0 Intake & Output: Intake and Output for Last 24 Hours 07/12/22 07/13/22 07/14/22 23:59 23:59 23:59 Intake Total 3860.0 / 3860.0 1100 / 1100 Output Total 800 / 800 200 / 200 Balance 3060.0 / 3060.0 900 / 900 Lab / Micro Data Result Diagrams: 07/14/22 04:21 07/14/22 04:21 Labs: Laboratory Results - last 24 hr 07/13/22 10:36: Lactic Acid 3.1 H* 07/13/22 17:52: POC Glucose 160 H 07/13/22 21:12: POC Glucose 171 H 07/14/22 04:21: WBC 13.7 H, RBC 3.91 L, Hgb 12.5, Hct 38.5, MCV 98.5, MCH 32.0, MCHC 32.5, RDW Std Deviation 45.7 H, RDW Coeff of Fredo 12.7, Plt Count 203, MPV 11.5, Immature Gran % (Auto) [employer]ER [employer]UCATION TEACHER, Neut % (Auto) C[employer]ER EDUCATION TEACHER, Lymph % (Auto) CAREER EDUCATION TEACHER, [place] % (Auto) CAREER EDUCATION TEACHER, Eos % (Auto) CAREER EDUCATION TEACHER, Baso % (Auto) C[employer]ER EDUCATION TEACHER, Absolute Neuts (auto) 12.5 H, Absolute Lymphs (auto) 0.55 L, Total Counted 100, Neutrophils % (Manual) 61, Band Neutrophils % 21 H, Lymphocytes % (Manual) 4 L, Monocytes % (Manual) 4, Basophils % (Manual) 1, Metamyelocytes % 9 H, Nucleated RBC % 0, Diff Path Review May foll, Platelet Estimate ADEQUATE, RBC Morphology NORM C+C 07/14/22 04:21: Sodium 138, Potassium 3.9, Chloride 108 H, Carbon Dioxide 19.0 L , Anion Gap 11, BUN 17, Creatinine 1.22 H, Estim Creat Clear Calc 32.45, Est GFR (MDRD) Af Amer 55 L, Est GFR (MDRD) Non-Af 46 L, BUN/Creatinine Ratio 13.9, Glucose 163 H, Calcium 7.7 L 07/14/22 06:36: POC Glucose 162 H Radiography Diagnostic Testing: Radiology Impression Chest X-Ray 07/13/22 06:15 IMPRESSION: No acute findings in the chest. Electronically Signed: Aden Berrios MD at 8:13 EDT , Physical Exam Narrative GENERAL: cooperative HEENT: Atraumatic; normocephalic EYES; Anicteric, Normal Conjunctiva NECK; supple, normal thyroid, RESPIRATORY: Diminished to auscultation CARDIOVASCULAR: Regular S1 S2, left lower quadrant abdominal pain GI: soft, normoactive bowel sounds, : No Renal angle tenderness; EXTREMITIES: No edema, no clubbing, MUSCULOSKELETAL: no muscle wasting NEURO: Awake; no lateralizing signs. SKIN: No Rash PSYCH; Flat affect Assessment & Plan Assessment/Plan (1) UTI (urinary tract infection): (2) Diverticulitis: (3) Sepsis: PLAN: Plan Patient is a 76-year-old lady admitted with lower abdominal pain imaging studies obtained on admission demonstrated acute uncomplicated descending/sigmoid diverticulitis admitted to regular nursing floor for further management 1. Sepsis ? (Present on admission)?patient had a source of infection had leukocytosis and was tachycardic and had evidence of endorgan dysfunction?elevated lactic acid level, secondary to combination of UTI and diverticulitis managed per protocol admitted to monitored bed progress being monitored with vitals, CBC and serial lactic acid level 2. Diabetes mellitus type 2 ? Patient is on metformin this was held in view of lactic acidosis please on Accu-Cheks before meals and at bedtime with sliding scale coverage 3. DVT prophylaxis ? SC Lovenox Charges/Coding Visit Charges Inpatient E&M: 61006 Subs Hosp L2
--- NOTE | 2022-07-14 10:00 | CASEMGMT ---
SADIE SHEA Assessment: Face to Face with pt for initial transition planning/care coordination assessment. SADIE SHEA introduced self and role at [facility], pt voices understanding and consents to assessment. Pt is A/O x4 and answers all questions appropriately at this time. Pt lying in bed with oxygen on in no distress. Care providers, pharmacy, and demographics verified/updated. Admitting Dx: UTI, diverticulitis, sepsis PCP:Caitie Specialists:Pt denies. Preferred [facility]acy: [facility] Insurance: Zan SANTOS Prescription Benefit: yes LW/HPOA: Pt states she has a LW/DPOA and her son Jose Berger is her DPOA. She is aware this is not on file at [facility] and she may bring in to be scanned into the chart. LNOK: Giovany Berger, Living Arrangements: Pt lives with in a two story house with no steps to enter through the rear entrance. Pt states they do not use the second level. Pt reports being I in ADL's and denies concerns at home. Transportation: Pt drives self and denies concerns with transportation. DME/HHC/SNF: Pt has a BGM at home with supplies but states she does not routinely check her blood sugars. Pt also has a cane and walker that she doesn't use. Pt denies hx of HHC or SNf stays. Pt states no concerns with going home at time of dc. She states she just needs to get her pain under control. Denies any needs for strengthening, states her only issue is the pain. Pt states she does not typically wear oxygen at home. Currently she is on 4L. Pt states no further concerns/needs. CM to follow. Advised pt to ask CM if any further question/concerns/needs arise, voices understanding. Pt Goal: Home Plan: Home, follow for oxygen and possible HHC vs [facility] if so.
[2022-07-14] MEDS: Ciprofloxacin 400 MG/200 ML BAG 200 MG IV ×2 (10:25→22:31)
[2022-07-14] MEDS: Enoxaparin 40 MG/0.4 ML Syringe SC (10:26)
[2022-07-14 12:05] LABS: Bedside Glucose 206 mg/dL (74-106)
[2022-07-14 13:35] LABS: Pathologist Review Reviewed
[2022-07-14 16:00] LABS: Bedside Glucose 189 mg/dL (74-106)
[2022-07-14 21:50] LABS: Bedside Glucose 140 mg/dL (74-106)
[2022-07-14] MEDS: MELATONIN 3 MG TABLET PO (22:33)
[2022-07-14] MEDS: oxyCODONE 5 MG Tablet PO (22:33)
[2022-07-15] VITALS (18 sets, daily range): BP systolic 146–167; BP diastolic 72–95; PULSE 101–115; RESP 14–20; TEMP 36.3–37.1; O2SAT 86–96
[2022-07-15] MEDS: 0.9% Saline Lock 10 ML Syringe IV ×4 (04:06→22:40)
[2022-07-15] MEDS: Morphine 2 MG/ML Syringe IV ×2 (04:06→10:55)
[2022-07-15] MEDS: 0.9% Normal Saline 1,000 ML 150 ML IV ×2 (04:07→13:56)
[2022-07-15] MEDS: metroNIDAZOLE 500 MG/100 ML BAG 100 MG IV ×3 (06:23→21:23)
[2022-07-15] MEDS: oxyCODONE 5 MG Tablet PO ×3 (06:25→21:25)
[2022-07-15 06:34] LABS: Absolute Lymphocyte Count 0.61 X10^3/uL (0.83-4.51); Absolute Neutrophil Count 9.8 X10^3/uL (2.0-7.7); Basophil# 0.02 X10^3/uL; Basophil% 0.2 % (0-1); Eosinophil# 0.03 X10^3/uL; Eosinophils% 0.3 % (0-5); Hematocrit 33.8 % (37-47); Hemoglobin 10.6 g/dL (12.0-15.0); Lymphocyte # 0.61 X10^3/ul (0.83-4.51); Lymphocyte % 5.6 % (19-41); Mean Corp Hgb Conc 31.4 g/dL (32-36); Mean Corpuscular Hgb 31.1 pg (27.0-32.0); Mean Corpuscular Volume 99.1 fL (81-99); Mean Platelet Vol. 11.3 fl (6.2-12.0); Monocyte# 0.39 X10^3/uL; Monocyte% 3.6 % (0-10); NRBC Flagged by Analyzer 0 % (0-5); Neutrophil # 9.82 X10^3/uL (2.7-7.7); Neutrophil % 89.6 % (47-70); POSITIVE MORPHOLOGY YES; Platelet Count 152 K/mm3 (150-450); RBC Distribution Width CV 12.8 % (11.6-14.6); RBC Distribution Width SD 46.4 fl (35.1-43.9); Red Blood Count 3.41 M/mm3 (4.2-5.4)
[2022-07-15 06:38] LABS: Differential Indicated SCAN CRITERIA MET
[2022-07-15 07:12] LABS: Anion Gap 7 (5-15); BUN 17 mg/dL (7-18); BUN/Creat Ratio 17.2 RATIO (10-20); Calcium,Total 7.7 mg/dL (8.5-10.1); Chloride 109 mmol/L (98-107); Creatinine, Serum 0.99 mg/dL (0.55-1.02); EST Glomerular Filtration Rate 58 mL/min (>60); Est Glom Filt Rate - Afr Amer 70 mL/min (>60); Estimated Creatinine Clearance 39.99 ml/min; Glucose 140 mg/dL (74-106); Magnesium 1.6 mg/dL (1.6-2.6); Phosphorus 2.4 mg/dL (2.5-4.9); Potassium 3.7 mmol/L (3.5-5.1); Sodium Level 137 mmol/L (136-145)
[2022-07-15 07:20] LABS: Bedside Glucose 126 mg/dL (74-106)
--- NOTE | 2022-07-15 07:38 | PCM.PN.HOSP ---
Subjective Subjective Seen still complains of significant left lower quadrant abdominal pain. Ordered CT of the abdomen and pelvis with contrast to evaluate for possible complications including perforation and phlegmon formation Objective Data Objective Data Vital Signs: Vital Signs Temp Pulse Resp BP Pulse Ox O2 Del Method O2 Flow Rate 97.9 F 107 H 20 H 146/77 H 92 Nasal Cannula 3 07/15/22 06:19 07/15/22 06:45 07/15/22 06:19 07/15/22 06:19 07/15/22 06:48 07/15/22 06:48 07/15/22 06:48 Oxygen Flow Rate (L/min) 3 Oxygen Delivery Method Nasal Cannula Weight: 74.5 kg Body Mass Index (BMI) 29.0 Intake & Output: Intake and Output for Last 24 Hours 07/13/22 07/14/22 07/15/22 23:59 23:59 23:59 Intake Total 3860.0 / 3860.0 4782.5 / 4782.5 1232.5 / 1232.5 Output Total 800 / 800 900 / 900 200 / 200 Balance 3060.0 / 3060.0 3882.5 / 3882.5 1032.5 / 1032.5 Lab / Micro Data Result Diagrams: 07/15/22 05:55 07/15/22 05:55 Labs: Laboratory Results - last 24 hr 07/14/22 04:21: Diff Path Review Reviewed 07/14/22 11:37: POC Glucose 206 H 07/14/22 15:38: POC Glucose 189 H 07/14/22 21:24: POC Glucose 140 H 07/15/22 05:55: WBC 11.0, RBC 3.41 L, Hgb 10.6 L, Hct 33.8 L, MCV 99.1 H, MCH 31.1, MCHC 31.4 L, RDW Std Deviation 46.4 H, RDW Coeff of Fredo 12.8, Plt Count 152, MPV 11.3, Immature Gran % (Auto) 0.700, Neut % (Auto) 89.6 H, Lymph % (Auto) 5.6 L, [place] % (Auto) 3.6, Eos % (Auto) 0.3, Baso % (Auto) 0.2, Absolute Neuts (auto) 9.8 H, Absolute Lymphs (auto) 0.61 L, Nucleated RBC % 0 07/15/22 05:55: Sodium 137, Potassium 3.7, Chloride 109 H, Carbon Dioxide 21.0, Anion Gap 7, BUN 17, Creatinine 0.99, Estim Creat Clear Calc 39.99, Est GFR (MDRD) Af Amer 70, Est GFR (MDRD) Non-Af 58 L, BUN/Creatinine Ratio 17.2, Glucose 140 H, Calcium 7.7 L, Phosphorus 2.4 L, Magnesium 1.6 07/15/22 06:22: POC Glucose 126 H Micro: Microbiology 07/13/22 04:30 Urine, Clean Catch Urine Culture - Final Escherichia coli Physical Exam Narrative GENERAL: cooperative appears to be in some discomfort HEENT: Atraumatic; normocephalic EYES; Anicteric, Normal Conjunctiva NECK; supple, normal thyroid, RESPIRATORY: Diminished to auscultation CARDIOVASCULAR: Regular S1 S2, significant left lower quadrant tenderness GI: soft, normoactive bowel sounds, : No Renal angle tenderness; EXTREMITIES: No edema, no clubbing, MUSCULOSKELETAL: no muscle wasting NEURO: Awake; no lateralizing signs. SKIN: No Rash PSYCH; Flat affect Assessment & Plan Assessment/Plan (1) UTI (urinary tract infection): (2) Diverticulitis: (3) Sepsis: PLAN: Plan Patient is a 76-year-old lady admitted with lower abdominal pain imaging studies obtained on admission demonstrated acute uncomplicated descending/sigmoid diverticulitis admitted to regular nursing floor for further management 1. Sepsis ? (Present on admission)?patient had a source of infection had leukocytosis and was tachycardic and had evidence of endorgan dysfunction?elevated lactic acid level, secondary to combination of UTI and diverticulitis managed per protocol admitted to monitored bed progress being monitored with vitals, CBC and serial lactic acid level ? 07/15/2022; Seen still complains of significant left lower quadrant abdominal pain. Ordered CT of the abdomen and pelvis with contrast to evaluate for possible complications including perforation and phlegmon formation 2. Diabetes mellitus type 2 ? Patient is on metformin this was held in view of lactic acidosis please on Accu-Cheks before meals and at bedtime with sliding scale coverage 3. DVT prophylaxis ? SC Lovenox Charges/Coding Visit Charges Inpatient E&M: 23799 Subs Hosp L3
[2022-07-15] MEDS: Enoxaparin 40 MG/0.4 ML Syringe SC (09:23)
[2022-07-15] MEDS: Ondansetron 4 MG/2 ML Vial IV ×2 (09:30→18:42)
[2022-07-15] MEDS: Ciprofloxacin 400 MG/200 ML BAG 200 MG IV ×2 (10:50→22:45)
--- NOTE | 2022-07-15 11:20 | CT_ITS ---
STUDY: CT ABDOMEN AND PELVIS WITH CONTRAST REASON FOR EXAM: Female, 76 years old. Diverticulitis RADIATION DOSAGE (If Supplied By Facility): CTDIvol = ( 15.32 ) mGy, DLP = ( 1141.03 ) mGycm TECHNIQUE: Transaxial images were obtained from the dome of the diaphragm to the symphysis pubis with oral contrast. Oral and amp; IV Gastrografin and amp; 100mL Isovue-300 was administered. Sagittal and coronal images were reconstructed. Individualized dose optimization techniques were used for this CT. COMPARISON: Comparison is made with prior study 07/13/2022. FINDINGS: There now is evidence of small bilateral pleural effusions with bibasilar atelectasis. The visualized portions of the heart are within normal limits. There is decreased attenuation of the liver consistent with steatosis. Questionable small gallstones along the dependent portion of the gallbladder lumen. Stable 3.5 cm x 3.3 cm cystic structure with dense calcific rim in the anterior aspect of the spleen. Normal pancreas. Normal bilateral adrenal glands. Normal right kidney. Stable left parapelvic cysts. Normal visualized stomach. Normal small intestine. There is diverticulosis, with thickening of the colon wall, and pericolonic inflammation changes consistent with acute diverticulitis. Since prior study, there is residual mild degree of inflammatory changes surrounding the sigmoid colon. There is non-visualization of the appendix. Normal abdominal aorta. Normal inferior vena cava. Normal retroperitoneum. An air-fluid level is once again seen in the urinary bladder. This may be normal finding if there is a FAIRCHILD catheter within it. Due to the bilateral hip replacement and beam hardening artifacts, the distal portion of the bladder cannot be visualized. Focal calcified uterine fibroid. Mild increased markings in the subcutaneous fat overlying the left posterior abdominal wall and pelvic wall. Cellulitis should be ruled out. There are diffuse degenerative changes of the visualized lumbar spine. Stable dextroscoliosis. CT/Abdomen/Pelvis WITH Contrast IMPRESSION: Essentially stable inflammatory changes surrounding the sigmoid colon suggestive of diverticulitis. Fatty infiltration of the liver. Stable cystic structure with dense calcific rim in the anterior aspect of the spleen. Electronically Signed: Gabriel Broderick MD at 12:31 EDT ,
[2022-07-15] MEDS: Insulin Lispro 100 UNIT/ML INSULN.PEN SC (12:05)
[2022-07-15 12:30] LABS: Bedside Glucose 169 mg/dL (74-106)
[2022-07-15 18:16] LABS: Bedside Glucose 130 mg/dL (74-106)
[2022-07-15] MEDS: MELATONIN 3 MG TABLET PO (21:25)
--- NOTE | 2022-07-15 21:49 | PCM.HOSP.N ---
Hospitalist Note Notified by Romina NOEL that patient is having itching and red rash to left flank and abdomen. Area has maculopapular rash to left flank, back, side. Patient states it is very itchy and she thinks that it began following her CT with contrast earlier. Patient given Benadryl and Pepcid IV. Also reported that patient is having fine crackles in bases of lungs, normal saline decreased from 150 mL/h to 75 mL/h.
[2022-07-15] MEDS: DiphenhydrAMINE 50 MG/ML Syringe IV (21:56)
[2022-07-15] MEDS: 0.9% Normal Saline 1,000 ML 75 ML IV (22:39)
[2022-07-15] MEDS: Famotidine 200 MG/20 ML MDV 20 MG in 0.9% Normal Saline (Pres. free 8 ML 300 MG IV (22:40)
[2022-07-15 23:20] LABS: Bedside Glucose 158 mg/dL (74-106)
[2022-07-16] VITALS (13 sets, daily range): BP systolic 146–168; BP diastolic 90–99; PULSE 97–112; RESP 16–20; TEMP 36.6–36.9; O2SAT 92–98
[2022-07-16] MEDS: 0.9% Saline Lock 10 ML Syringe IV ×2 (04:15→06:45)
[2022-07-16] MEDS: DiphenhydrAMINE 50 MG/ML Syringe IV (04:15)
[2022-07-16] MEDS: metroNIDAZOLE 500 MG/100 ML BAG 100 MG IV (06:18)
[2022-07-16] MEDS: hydrALAZINE 20 MG/ML Vial 5 MG IV (06:44)
[2022-07-16 06:45] LABS: Bedside Glucose 134 mg/dL (74-106)
--- NOTE | 2022-07-16 07:26 | PCM.PN.HOSP ---
Subjective Subjective Seen still complains of abdominal pain CT of the abdomen and pelvis obtained the day prior was unremarkable. She has however developed an area of erythema and warmth on the left flank. WBC count trending up. Potassium down to 3.2 Objective Data Objective Data Vital Signs: Vital Signs Temp Pulse Resp BP Pulse Ox O2 Del Method O2 Flow Rate 97.9 F 109 H 18 168/92 H 93 Nasal Cannula 2 07/16/22 06:21 07/16/22 06:44 07/16/22 06:21 07/16/22 06:44 07/16/22 06:42 07/16/22 06:42 07/16/22 06:42 Oxygen Flow Rate (L/min) 2 Oxygen Delivery Method Nasal Cannula Weight: 74.5 kg Body Mass Index (BMI) 29.0 Intake & Output: Intake and Output for Last 24 Hours 07/14/22 07/15/22 07/16/22 23:59 23:59 23:59 Intake Total 4782.5 / 4782.5 3503.75 / 3503.75 942.5 / 942.5 Output Total 900 / 900 1050 / 1050 1850 / 1850 Balance 3882.5 / 3882.5 2453.75 / 2453.75 -907.5 / -907.5 Lab / Micro Data Result Diagrams: 07/16/22 06:18 07/16/22 06:18 Labs: Laboratory Results - last 24 hr 07/15/22 12:04: POC Glucose 169 H 07/15/22 17:15: POC Glucose 130 H 07/15/22 22:44: POC Glucose 158 H 07/16/22 06:18: POC Glucose 134 H Micro: Microbiology 07/13/22 08:30 Blood Culture (Wb) - Left Forearm Blood Culture - Preliminary No growth in 48 hours. 07/13/22 08:40 Blood Culture (Wb) - Right Forearm Blood Culture - Preliminary No growth in 48 hours. 07/13/22 04:30 Urine, Clean Catch Urine Culture - Final Escherichia coli Radiography Diagnostic Testing: Radiology Impression Abdomen/Pelvis CT 07/15/22 11:20 IMPRESSION: Essentially stable inflammatory changes surrounding the sigmoid colon suggestive of diverticulitis. Fatty infiltration of the liver. Stable cystic structure with dense calcific rim in the anterior aspect of the spleen. Electronically Signed: Gabriel Broderick MD at 12:31 EDT , Physical Exam Narrative GENERAL: cooperative appears to be in some discomfort HEENT: Atraumatic; normocephalic EYES; Anicteric, Normal Conjunctiva NECK; supple, normal thyroid, RESPIRATORY: Diminished to auscultation CARDIOVASCULAR: Regular S1 S2, significant left lower quadrant tenderness GI: soft, normoactive bowel sounds, : No Renal angle tenderness; EXTREMITIES: No edema, no clubbing, MUSCULOSKELETAL: no muscle wasting NEURO: Awake; no lateralizing signs. SKIN: An area of induration warmth and erythema on the left flank PSYCH; Flat affect Assessment & Plan Assessment/Plan (1) UTI (urinary tract infection): (2) Diverticulitis: (3) Sepsis: PLAN: Plan Patient is a 76-year-old lady admitted with lower abdominal pain imaging studies obtained on admission demonstrated acute uncomplicated descending/sigmoid diverticulitis admitted to regular nursing floor for further management 1. Sepsis ? (Present on admission)?patient had a source of infection had leukocytosis and was tachycardic and had evidence of endorgan dysfunction?elevated lactic acid level, secondary to combination of UTI and diverticulitis managed per protocol admitted to monitored bed progress being monitored with vitals, CBC and serial lactic acid level ? 07/15/2022; Seen still complains of significant left lower quadrant abdominal pain. Ordered CT of the abdomen and pelvis with contrast to evaluate for possible complications including perforation and phlegmon formation ? 07/16/2022 CT of the abdomen and pelvis obtained the day prior did show Essentially stable inflammatory changes surrounding the sigmoid colon suggestive of diverticulitis. Fatty infiltration of the liver. Stable cystic structure with dense calcific rim in the anterior aspect of the spleen 2. Left flank cellulitis ? Adjusted patient antibiotic therapy cultures sent 3. Leukocytosis ? Secondary to pneumonia #2 we will continue with management as discussed above and follow with serial WBC count 4. Hypokalemia ? Corrected per protocol repeated potassium ordered for a.m. 5. Diabetes mellitus type 2 ? Patient is on metformin this was held in view of lactic acidosis please on Accu-Cheks before meals and at bedtime with sliding scale coverage 6. DVT prophylaxis ? SC Lovenox Charges/Coding Visit Charges Inpatient E&M: 47225 Subs Hosp L3
[2022-07-16 07:30] LABS: Absolute Lymphocyte Count 0.65 X10^3/uL (0.83-4.51); Absolute Neutrophil Count 11.9 X10^3/uL (2.0-7.7); Basophil# 0.04 X10^3/uL; Basophil% 0.3 % (0-1); Eosinophil# 0.03 X10^3/uL; Eosinophils% 0.2 % (0-5); Hematocrit 35.1 % (37-47); Hemoglobin 11.4 g/dL (12.0-15.0); Lymphocyte # 0.65 X10^3/ul (0.83-4.51); Lymphocyte % 4.9 % (19-41); Mean Corp Hgb Conc 32.5 g/dL (32-36); Mean Corpuscular Hgb 31.9 pg (27.0-32.0); Mean Corpuscular Volume 98.3 fL (81-99); Mean Platelet Vol. 11.1 fl (6.2-12.0); Monocyte# 0.57 X10^3/uL; Monocyte% 4.3 % (0-10); NRBC Flagged by Analyzer 0 % (0-5); Neutrophil # 11.93 X10^3/uL (2.7-7.7); POSITIVE MORPHOLOGY YES; Platelet Count 173 K/mm3 (150-450); RBC Distribution Width CV 12.7 % (11.6-14.6); RBC Distribution Width SD 46.1 fl (35.1-43.9); Red Blood Count 3.57 M/mm3 (4.2-5.4); White Blood Count 13.3 K/mm3 (4.4-11.0)
[2022-07-16 07:38] LABS: Differential Indicated SCAN CRITERIA MET
[2022-07-16 08:07] LABS: Anion Gap 10 (5-15); BUN 15 mg/dL (7-18); BUN/Creat Ratio 19.5 RATIO (10-20); Calcium,Total 8.1 mg/dL (8.5-10.1); Chloride 107 mmol/L (98-107); Creatinine, Serum 0.77 mg/dL (0.55-1.02); EST Glomerular Filtration Rate 77 mL/min (>60); Est Glom Filt Rate - Afr Amer 93 mL/min (>60); Estimated Creatinine Clearance 39.59 ml/min; Glucose 134 mg/dL (74-106); Potassium 3.2 mmol/L (3.5-5.1); Sodium Level 137 mmol/L (136-145)
[2022-07-16 08:26] LABS: Platelet Estimate ADEQUATE (ADEQ); Red Cell Morphology NORM C+C NORMAL (NORM C&C)
[2022-07-16] MEDS: Famotidine 200 MG/20 ML MDV 20 MG in 0.9% Normal Saline (Pres. free 8 ML 300 MG IV ×2 (08:48→21:26)
[2022-07-16] MEDS: Potassium Chloride 10mEq/100mL 10 MEQ/100 ML IV.SOLN. 100 MEQ IV BOLUS ×4 (08:48→13:13)
[2022-07-16] MEDS: Enoxaparin 40 MG/0.4 ML Syringe SC (08:49)
[2022-07-16] MEDS: 0.9% Normal Saline 1,000 ML 75 ML IV (08:50)
--- NOTE | 2022-07-16 10:51 | PHA.PHARE_ITS ---
Consult Pharmacy has been consulted to manage selected antiobiotic: Vancomycin Type of Consult: New start Suspected Infection: Skin/Soft tissue Labs: Sodium 137 mmol/L (136-145) 07/16/22 06:18 Potassium 3.2 mmol/L (3.5-5.1) L 07/16/22 06:18 Chloride 107 mmol/L (98-107) 07/16/22 06:18 Carbon Dioxide 20.0 mmol/L (21.0-32.0) L 07/16/22 06:18 Anion Gap 10 (5-15) 07/16/22 06:18 BUN 15 mg/dL (7-18) 07/16/22 06:18 Creatinine 0.77 mg/dL (0.55-1.02) 07/16/22 06:18 Est GFR (MDRD) Af Amer 93 mL/min (>60) 07/16/22 06:18 Est GFR (MDRD) Non-Af 77 mL/min (>60) 07/16/22 06:18 BUN/Creatinine Ratio 19.5 RATIO (10-20) 07/16/22 06:18 Glucose 134 mg/dL (74-106) H 07/16/22 06:18 Microbiology: Microbiology 07/13/22 08:30 Blood Culture (Wb) - Left Forearm Blood Culture - Preliminary No growth in 48 hours. 07/13/22 08:40 Blood Culture (Wb) - Right Forearm Blood Culture - Preliminary No growth in 48 hours. 07/13/22 04:30 Urine, Clean Catch Urine Culture - Final Escherichia coli Weight used for dosin.5 kg Estimated Creatinine Clearance: 57.8ML/MIN Goal Trough: 10-15 mcg/mL Pharmacy Plan for Drug Dosing: Give initial standard dose of 1250mg IV x1, then continue with 1500mg IV q24h per [facility] dosing protocol. Will check a trough level before the 3rd total dose. The patient's CrCl of 57.8ml/min was calculated using an adjusted body weight. Pharmacy Service will continue to monitor and adjust dosing as required. Follow-Up Labs: Trough Vancomycin Labs to be done on [date and time ordered]: 07/18/22 09:30
[2022-07-16] MEDS: Ondansetron 4 MG/2 ML Vial IV (11:17)
[2022-07-16 12:10] LABS: Bedside Glucose 143 mg/dL (74-106)
--- NOTE | 2022-07-16 13:23 | NURSING ---
attempt to call son Selvin @ [phone] unsucessful, no answer
[2022-07-16] MEDS: oxyCODONE 5 MG Tablet PO ×2 (14:15→21:36)
[2022-07-16 17:30] LABS: Bedside Glucose 182 mg/dL (74-106)
[2022-07-16 22:00] LABS: Bedside Glucose 138 mg/dL (74-106)
[2022-07-17] VITALS (11 sets, daily range): BP systolic 150–179; BP diastolic 94–102; PULSE 98–108; RESP 18; TEMP 36.6–37; O2SAT 92–94
[2022-07-17] MEDS: oxyCODONE 5 MG Tablet PO ×3 (04:33→19:04)
[2022-07-17] MEDS: 0.9% Normal Saline 1,000 ML 75 ML IV ×2 (04:34→17:58)
[2022-07-17 05:00] LABS: Absolute Lymphocyte Count 0.94 X10^3/uL (0.83-4.51); Absolute Neutrophil Count 13.3 X10^3/uL (2.0-7.7); Basophil# 0.04 X10^3/uL; Basophil% 0.3 % (0-1); Eosinophils% 0.6 % (0-5); Hematocrit 35.1 % (37-47); Hemoglobin 11.5 g/dL (12.0-15.0); Lymphocyte # 0.94 X10^3/ul (0.83-4.51); Mean Corp Hgb Conc 32.8 g/dL (32-36); Mean Corpuscular Hgb 31.3 pg (27.0-32.0); Mean Corpuscular Volume 95.6 fL (81-99); Monocyte% 7.1 % (0-10); NRBC Flagged by Analyzer 0 % (0-5); Neutrophil # 13.31 X10^3/uL (2.7-7.7); Neutrophil % 85.4 % (47-70); Platelet Count 196 K/mm3 (150-450); RBC Distribution Width CV 12.9 % (11.6-14.6); RBC Distribution Width SD 45.5 fl (35.1-43.9); Red Blood Count 3.67 M/mm3 (4.2-5.4); White Blood Count 15.6 K/mm3 (4.4-11.0)
[2022-07-17 05:16] LABS: Anion Gap 10 (5-15); BUN 17 mg/dL (7-18); BUN/Creat Ratio 21.9 RATIO (10-20); Calcium,Total 8.2 mg/dL (8.5-10.1); Chloride 106 mmol/L (98-107); Creatinine, Serum 0.78 mg/dL (0.55-1.02); EST Glomerular Filtration Rate 77 mL/min (>60); Est Glom Filt Rate - Afr Amer 93 mL/min (>60); Estimated Creatinine Clearance 39.59 ml/min; Glucose 160 mg/dL (74-106); Magnesium 1.9 mg/dL (1.6-2.6); Sodium Level 137 mmol/L (136-145)
[2022-07-17] MEDS: Insulin Lispro 100 UNIT/ML INSULN.PEN SC ×4 (06:38→20:34)
[2022-07-17 07:00] LABS: Bedside Glucose 161 mg/dL (74-106)
--- NOTE | 2022-07-17 07:49 | PCM.PN.HOSP ---
Subjective Subjective Patient seen left flank less prominent compared to previous day. Potassium is down to 3.0 additional potassium given Objective Data Objective Data Vital Signs: Vital Signs Temp Pulse Resp BP Pulse Ox O2 Del Method O2 Flow Rate 97.9 F 98 18 161/98 H 94 Nasal Cannula 2 07/17/22 04:43 07/17/22 04:43 07/17/22 04:43 07/17/22 04:43 07/17/22 04:43 07/17/22 04:43 07/17/22 04:43 Oxygen Flow Rate (L/min) 2 Oxygen Delivery Method Nasal Cannula Weight: 74.5 kg Body Mass Index (BMI) 29.0 Intake & Output: Intake and Output for Last 24 Hours 07/15/22 07/16/22 07/17/22 23:59 23:59 23:59 Intake Total 3503.75 / 3503.75 4202.83 / 4202.83 650 / 650 Output Total 1050 / 1050 1850 / 1850 Balance 2453.75 / 2453.75 2352.83 / 2352.83 650 / 650 Lab / Micro Data Result Diagrams: 07/17/22 04:24 07/17/22 04:24 Labs: Laboratory Results - last 24 hr 07/16/22 06:18: Platelet Estimate ADEQUATE, RBC Morphology NORM C+C 07/16/22 06:18: Sodium 137, Potassium 3.2 L, Chloride 107, Carbon Dioxide 20.0 L, Anion Gap 10, BUN 15, Creatinine 0.77, Estim Creat Clear Calc 39.59, Est GFR (MDRD) Af Amer 93, Est GFR (MDRD) Non-Af 77, BUN/Creatinine Ratio 19.5, Glucose 134 H, Calcium 8.1 L 07/16/22 11:46: POC Glucose 143 H 07/16/22 17:04: POC Glucose 182 H 07/16/22 21:38: POC Glucose 138 H 07/17/22 04:24: WBC 15.6 H, RBC 3.67 L, Hgb 11.5 L, Hct 35.1 L, MCV 95.6, MCH 31.3, MCHC 32.8, RDW Std Deviation 45.5 H, RDW Coeff of Fredo 12.9, Plt Count 196, MPV 11.0, Immature Gran % (Auto) 0.600, Neut % (Auto) 85.4 H, Lymph % (Auto) 6.0 L, [place] % (Auto) 7.1, Eos % (Auto) 0.6, Baso % (Auto) 0.3, Absolute Neuts (auto) 13.3 H, Absolute Lymphs (auto) 0.94, Nucleated RBC % 0 07/17/22 04:24: Sodium 137, Potassium 3.0 L, Chloride 106, Carbon Dioxide 21.0, Anion Gap 10, BUN 17, Creatinine 0.78, Estim Creat Clear Calc 39.59, Est GFR (MDRD) Af Amer 93, Est GFR (MDRD) Non-Af 77, BUN/Creatinine Ratio 21.9 H, Glucose 160 H, Calcium 8.2 L, Magnesium 1.9 07/17/22 04:24: Phosphorus 2.0 L 07/17/22 06:36: POC Glucose 161 H Micro: Microbiology 07/13/22 08:30 Blood Culture (Wb) - Left Forearm Blood Culture - Preliminary No growth in 48 hours. 07/13/22 08:40 Blood Culture (Wb) - Right Forearm Blood Culture - Preliminary No growth in 48 hours. 07/13/22 04:30 Urine, Clean Catch Urine Culture - Final Escherichia coli Physical Exam Narrative GENERAL: cooperative appears to be in some discomfort HEENT: Atraumatic; normocephalic EYES; Anicteric, Normal Conjunctiva NECK; supple, normal thyroid, RESPIRATORY: Diminished to auscultation CARDIOVASCULAR: Regular S1 S2, significant left lower quadrant tenderness GI: soft, normoactive bowel sounds, : No Renal angle tenderness; EXTREMITIES: No edema, no clubbing, MUSCULOSKELETAL: no muscle wasting NEURO: Awake; no lateralizing signs. SKIN: An area of induration warmth and erythema on the left flank PSYCH; Flat affect Assessment & Plan Assessment/Plan (1) UTI (urinary tract infection): (2) Diverticulitis: (3) Sepsis: PLAN: Plan Patient is a 76-year-old lady admitted with lower abdominal pain imaging studies obtained on admission demonstrated acute uncomplicated descending/sigmoid diverticulitis admitted to regular nursing floor for further management 1. Sepsis ? (Present on admission)?patient had a source of infection had leukocytosis and was tachycardic and had evidence of endorgan dysfunction?elevated lactic acid level, secondary to combination of UTI and diverticulitis managed per protocol admitted to monitored bed progress being monitored with vitals, CBC and serial lactic acid level ? 07/15/2022; Seen still complains of significant left lower quadrant abdominal pain. Ordered CT of the abdomen and pelvis with contrast to evaluate for possible complications including perforation and phlegmon formation ? 07/16/2022 CT of the abdomen and pelvis obtained the day prior did show Essentially stable inflammatory changes surrounding the sigmoid colon suggestive of diverticulitis. Fatty infiltration of the liver. Stable cystic structure with dense calcific rim in the anterior aspect of the spleen ? 07/17/2022; patient improving clinically 2. Left flank cellulitis ? Adjusted patient antibiotic therapy cultures sent ? 07/17/2022 patient responding to antibiotic therapy 3. Leukocytosis ? Secondary to pneumonia #2 we will continue with management as discussed above and follow with serial WBC count 4. Hypokalemia ? Corrected per protocol repeated potassium ordered for a.m. ?07/17/2022; patient potassium remains low at 3.0 additional potassium given 5. Diabetes mellitus type 2 ? Patient is on metformin this was held in view of lactic acidosis please on Accu-Cheks before meals and at bedtime with sliding scale coverage 6. DVT prophylaxis ? SC Lovenox Charges/Coding Visit Charges Inpatient E&M: 40991 Subs Hosp L2
[2022-07-17] MEDS: Potassium Chloride Oral Tablet 20 MEQ PO ×2 (08:01→16:48)
[2022-07-17] MEDS: Enoxaparin 40 MG/0.4 ML Syringe SC (10:22)
[2022-07-17] MEDS: Potassium Chloride Oral Tablet 20 MEQ 60 MEQ PO (10:22)
[2022-07-17] MEDS: Famotidine 200 MG/20 ML MDV 20 MG in 0.9% Normal Saline (Pres. free 8 ML 300 MG IV ×2 (10:31→20:30)
--- NOTE | 2022-07-17 10:57 | CASEMGMT ---
Addendum entered by Seema Guadalupe 07/17/22 14:28: [place] [facility] [place] [facility] and emailed liaison. Original Note: Therapy made RN MONSE aware that pt would like a FWW. SADIE CM in to pt room. Pt provided a list of local in network DME companies, pt chose [employer]. Pt is not dc'ing today. Rx script signed for FWW. Pt is still denying HHC needs at this time or any homegoing needs.
[2022-07-17 12:11] LABS: Bedside Glucose 228 mg/dL (74-106)
[2022-07-17 17:06] LABS: Bedside Glucose 166 mg/dL (74-106)
[2022-07-17] MEDS: Morphine 2 MG/ML Syringe IV (20:32)
[2022-07-17 21:01] LABS: Bedside Glucose 220 mg/dL (74-106)
[2022-07-18] VITALS (10 sets, daily range): BP systolic 157–170; BP diastolic 78–85; PULSE 94–106; RESP 16–18; TEMP 36.8–37.1; O2SAT 93–97
[2022-07-18] MEDS: oxyCODONE 5 MG Tablet PO ×2 (03:22→09:13)
[2022-07-18] MEDS: 0.9% Normal Saline 1,000 ML 75 ML IV (03:23)
[2022-07-18] MEDS: hydrALAZINE 20 MG/ML Vial 5 MG IV (03:26)
[2022-07-18] MEDS: 0.9% Saline Lock 10 ML Syringe IV ×2 (03:27→09:13)
[2022-07-18] MEDS: Insulin Lispro 100 UNIT/ML INSULN.PEN SC ×2 (05:34→12:06)
[2022-07-18 06:01] LABS: Bedside Glucose 188 mg/dL (74-106)
--- NOTE | 2022-07-18 07:34 | PCM.PN.HOSP ---
Subjective Subjective Patient seen left flank erythema improving however still complains of left lower quadrant abdominal pain. WBC count trending down. Patient be assessed for possible discharge Objective Data Objective Data Vital Signs: Vital Signs Temp Pulse Resp BP Pulse Ox O2 Del Method O2 Flow Rate 98.7 F 94 18 157/82 H 97 Nasal Cannula 2 07/18/22 03:11 07/18/22 03:26 07/18/22 03:11 07/18/22 05:32 07/18/22 03:11 07/18/22 03:11 07/18/22 03:11 Oxygen Flow Rate (L/min) 2 Oxygen Delivery Method Nasal Cannula Weight: 74.5 kg Body Mass Index (BMI) 29.0 Intake & Output: Intake and Output for Last 24 Hours 07/16/22 07/17/22 07/18/22 23:59 23:59 23:59 Intake Total 4202.83 / 4202.83 2300 / 2300 756.25 / 756.25 Output Total 1850 / 1850 Balance 2352.83 / 2352.83 2300 / 2300 756.25 / 756.25 Lab / Micro Data Result Diagrams: 07/18/22 09:18 07/17/22 04:24 Labs: Laboratory Results - last 24 hr 07/17/22 11:48: POC Glucose 228 H 07/17/22 16:42: POC Glucose 166 H 07/17/22 20:24: POC Glucose 220 H 07/18/22 05:31: POC Glucose 188 H Micro: Microbiology 07/13/22 08:30 Blood Culture (Wb) - Left Forearm Blood Culture - Preliminary No growth in 48 hours. 07/13/22 08:40 Blood Culture (Wb) - Right Forearm Blood Culture - Preliminary No growth in 48 hours. 07/13/22 04:30 Urine, Clean Catch Urine Culture - Final Escherichia coli Physical Exam Narrative GENERAL: cooperative appears to be in some discomfort HEENT: Atraumatic; normocephalic EYES; Anicteric, Normal Conjunctiva NECK; supple, normal thyroid, RESPIRATORY: Diminished to auscultation CARDIOVASCULAR: Regular S1 S2, significant left lower quadrant tenderness GI: soft, normoactive bowel sounds, : No Renal angle tenderness; EXTREMITIES: No edema, no clubbing, MUSCULOSKELETAL: no muscle wasting NEURO: Awake; no lateralizing signs. SKIN: An area of induration warmth and erythema on the left flank PSYCH; Flat affect Assessment & Plan Assessment/Plan (1) UTI (urinary tract infection): (2) Diverticulitis: (3) Sepsis: PLAN: Plan Patient is a 76-year-old lady admitted with lower abdominal pain imaging studies obtained on admission demonstrated acute uncomplicated descending/sigmoid diverticulitis admitted to regular nursing floor for further management 1. Sepsis ? (Present on admission)?patient had a source of infection had leukocytosis and was tachycardic and had evidence of endorgan dysfunction?elevated lactic acid level, secondary to combination of UTI and diverticulitis managed per protocol admitted to monitored bed progress being monitored with vitals, CBC and serial lactic acid level ? 07/15/2022; Seen still complains of significant left lower quadrant abdominal pain. Ordered CT of the abdomen and pelvis with contrast to evaluate for possible complications including perforation and phlegmon formation ? 07/16/2022 CT of the abdomen and pelvis obtained the day prior did show Essentially stable inflammatory changes surrounding the sigmoid colon suggestive of diverticulitis. Fatty infiltration of the liver. Stable cystic structure with dense calcific rim in the anterior aspect of the spleen ? 07/17/2022; patient improving clinically - 07/18/2022: Patient seen left flank erythema improving however still complains of left lower quadrant abdominal pain. WBC count trending down. Patient be assessed for possible discharge 2. Left flank cellulitis ? Adjusted patient antibiotic therapy cultures sent ? 07/17/2022 patient responding to antibiotic therapy 3. Leukocytosis ? Secondary to cellulitis #2 we will continue with management as discussed above and follow with serial WBC count 4. Hypokalemia ? Corrected per protocol repeated potassium ordered for a.m. ?07/17/2022; patient potassium remains low at 3.0 additional potassium given 5. Diabetes mellitus type 2 ? Patient is on metformin this was held in view of lactic acidosis please on Accu-Cheks before meals and at bedtime with sliding scale coverage 6. DVT prophylaxis ? SC Lovenox Charges/Coding Visit Charges Inpatient E&M: 35698 Subs Hosp L2
[2022-07-18] MEDS: Enoxaparin 40 MG/0.4 ML Syringe SC (09:10)
[2022-07-18] MEDS: Famotidine 200 MG/20 ML MDV 20 MG in 0.9% Normal Saline (Pres. free 8 ML 300 MG IV (09:13)
[2022-07-18] MEDS: Senna/Docusate Sodium 1 Tablet 2 TABLET PO (09:15)
[2022-07-18] MEDS: Potassium Chloride Oral Tablet 20 MEQ PO (09:17)
[2022-07-18 09:28] LABS: Absolute Lymphocyte Count 1.41 X10^3/uL (0.83-4.51); Absolute Neutrophil Count 9.7 X10^3/uL (2.0-7.7); Basophil# 0.08 X10^3/uL; Basophil% 0.6 % (0-1); Eosinophil# 0.37 X10^3/uL; Eosinophils% 2.9 % (0-5); Hemoglobin 11.5 g/dL (12.0-15.0); Lymphocyte # 1.41 X10^3/ul (0.83-4.51); Lymphocyte % 10.9 % (19-41); Mean Corp Hgb Conc 32.9 g/dL (32-36); Mean Corpuscular Hgb 31.5 pg (27.0-32.0); Mean Corpuscular Volume 95.9 fL (81-99); Mean Platelet Vol. 10.7 fl (6.2-12.0); Monocyte# 1.01 X10^3/uL; Monocyte% 7.8 % (0-10); NRBC Flagged by Analyzer 0 % (0-5); Neutrophil # 9.71 X10^3/uL (2.7-7.7); Neutrophil % 75.2 % (47-70); POSITIVE MORPHOLOGY YES; Platelet Count 221 K/mm3 (150-450); RBC Distribution Width CV 13.2 % (11.6-14.6); RBC Distribution Width SD 46.6 fl (35.1-43.9); Red Blood Count 3.65 M/mm3 (4.2-5.4); White Blood Count 12.9 K/mm3 (4.4-11.0)
[2022-07-18 09:30] LABS: Differential Indicated SCAN CRITERIA MET
--- NOTE | 2022-07-18 09:34 | PCM.DC.SUM ---
Providers Date of Admission: 07/13/22 Date of Discharge: 07/18/22 Primary Care Physician: Dr. Jocelyn Blood MD Reason For Visit: UTI, DIVERTICULITIS, SEPSIS Diagnosis Discharge Diagnosis (1) UTI (urinary tract infection): Status: Acute Code(s): N39.0 - Urinary tract infection, site not specified (2) Diverticulitis: Status: Acute Code(s): K57.92 - Diverticulitis of intestine, part unspecified, without perforation or abscess without bleeding (3) Sepsis: Status: Acute Code(s): A41.9 - Sepsis, unspecified organism Plan Patient is a 76-year-old lady admitted with lower abdominal pain imaging studies obtained on admission demonstrated acute uncomplicated descending/sigmoid diverticulitis admitted to regular nursing floor for further management 1. Sepsis ? (Present on admission)?patient had a source of infection had leukocytosis and was tachycardic and had evidence of endorgan dysfunction?elevated lactic acid level, secondary to combination of UTI and diverticulitis managed per protocol admitted to monitored bed progress being monitored with vitals, CBC and serial lactic acid level ? 07/15/2022; Seen still complains of significant left lower quadrant abdominal pain. Ordered CT of the abdomen and pelvis with contrast to evaluate for possible complications including perforation and phlegmon formation ? 07/16/2022 CT of the abdomen and pelvis obtained the day prior did show Essentially stable inflammatory changes surrounding the sigmoid colon suggestive of diverticulitis. Fatty infiltration of the liver. Stable cystic structure with dense calcific rim in the anterior aspect of the spleen ? 07/17/2022; patient improving clinically - 07/18/2022: Patient seen left flank erythema improving however still complains of left lower quadrant abdominal pain. WBC count trending down. Patient be assessed for possible discharge 2. Left flank cellulitis ? Adjusted patient antibiotic therapy cultures sent ? 07/17/2022 patient responding to antibiotic therapy 3. Leukocytosis ? Secondary to cellulitis #2 we will continue with management as discussed above and follow with serial WBC count 4. Hypokalemia ? Corrected per protocol repeated potassium ordered for a.m. ?07/17/2022; patient potassium remains low at 3.0 additional potassium given 5. Diabetes mellitus type 2 ? Patient is on metformin this was held in view of lactic acidosis please on Accu-Cheks before meals and at bedtime with sliding scale coverage 6. DVT prophylaxis ? SC Lovenox 7. Acute cystitis with E. coli ? Patient was discharged home on ciprofloxacin Medications at Discharge Home Medications ibuprofen 200 mg tablet 200 mg PO QHS PRN Pain (Scale Score 4-6) 05/30/22 metformin 1,000 mg tablet 1,000 mg PO BID Check with primary doctor 05/30/22 hydrocodone-acetaminophen 5-325mg 5mg-325mg 1 tab PO Q6H PRN pain 3 days #10 tabs 07/13/22 amlodipine 10 mg tablet 10 mg PO DAILY #30 tabs 07/18/22 ciprofloxacin HCl 500 mg tablet (Cipro) 500 mg PO BID #14 tabs 07/18/22 metronidazole 500 mg tablet 500 mg PO Q8H #20 tabs 07/18/22 oxycodone 5 mg tablet 5 mg PO Q6H PRN PRN 4-8 4 days #12 tabs 07/18/22 potassium chloride 20 mEq tablet,extended release(part/cryst) (Klor-Con M) 20 meq PO BIDCM #20 tabs 07/18/22 Hospital Course Summary of Care Provided Minutes Spent on Discharge: 35 Physical Exam Narrative GENERAL: cooperative HEENT: Atraumatic; normocephalic EYES; Anicteric, Normal Conjunctiva NECK; supple, normal thyroid, RESPIRATORY: Diminished to auscultation CARDIOVASCULAR: Regular S1 S2, GI: soft, normoactive bowel sounds, : No Renal angle tenderness; EXTREMITIES: No edema, no clubbing, MUSCULOSKELETAL: no muscle wasting NEURO: Awake; no lateralizing signs. SKIN: slight erythema on the left flank PSYCH; Flat affect Weight / BMI Weight Weight: 74.5 kg Body Mass Index (BMI) 29.0 ABG / Lab / Microbiology Data Result Diagrams: 07/18/22 09:18 07/17/22 04:24 Laboratory: Laboratory Results - last 24 hr 07/17/22 11:48: POC Glucose 228 H 07/17/22 16:42: POC Glucose 166 H 07/17/22 20:24: POC Glucose 220 H 07/18/22 05:31: POC Glucose 188 H 07/18/22 09:18: WBC 12.9 H, RBC 3.65 L, Hgb 11.5 L, Hct 35.0 L, MCV 95.9, MCH 31.5, MCHC 32.9, RDW Std Deviation 46.6 H, RDW Coeff of Fredo 13.2, Plt Count 221, MPV 10.7, Immature Gran % (Auto) 2.600 H, Neut % (Auto) 75.2 H, Lymph % (Auto) 10.9 L, [place] % (Auto) 7.8, Eos % (Auto) 2.9, Baso % (Auto) 0.6, Absolute Neuts (auto) 9.7 H, Absolute Lymphs (auto) 1.41, Nucleated RBC % 0 Microbiology: Microbiology 07/13/22 08:40 Blood Culture (Wb) - Right Forearm Blood Culture - Final No growth in 5 days. 07/13/22 08:30 Blood Culture (Wb) - Left Forearm Blood Culture - Final No growth in 5 days. 07/13/22 04:30 Urine, Clean Catch Urine Culture - Final Escherichia coli D/C Instructions Discharge Diet: No restrictions Discharge Activity: Return to Normal Activity Call your doctor if you observe: Fever of 101 or Higher, Shortness of breath, Fainting spells and Chest pain Meaningful Use Info Meaningful Use Diagnoses (Choose all that apply): None applicable Discharge Plan Admission Admit Date/Time: 07/13/22 08:23 Attending Provider: Fabien Negron Primary Care Provider: Jocelyn Blood Consulting Providers: Rahul Junior Discharge Orders/Prescriptions Prescriptions: New hydrocodone-acetaminophen 5-325 mg tablet 1 tab PO Q6H PRN (Reason: pain) 3 Days Qty: 10 0RF potassium chloride [Klor-Con M20] 20 mEq Tablet,Er Particles/Crystals 20 meq PO BIDCM Qty: 20 0RF amlodipine 10 mg Tablet 10 mg PO DAILY Qty: 30 0RF oxycodone 5 mg Tablet 5 mg PO Q6H PRN PRN (Reason: 4-8) 4 Days Qty: 12 0RF ciprofloxacin HCl [Cipro] 500 mg tablet 500 mg PO BID Qty: 14 0RF metronidazole 500 mg tablet 500 mg PO Q8H Qty: 20 0RF Continued metformin 1,000 mg tablet 1,000 mg PO BID ibuprofen 200 mg tablet 200 mg PO QHS PRN (Reason: Pain (Scale Score 4-6)) Referrals / Follow Up: Jocelyn Blood MD [Primary Care Provider] - 5-7 Days Disposition Disposition (needs filled in before D/C Order can be placed): Home, Self Care Charges/Coding Visit Charges Inpatient E&M: 36552 Disch Hosp
[2022-07-18 09:54] LABS: Atypical Lymphocyte 1+ %; Platelet Estimate ADEQUATE (ADEQ); Red Cell Morphology NORM C+C NORMAL (NORM C&C)
[2022-07-18] MEDS: amLODIPine 10 MG Tablet PO (10:04)
[2022-07-18 10:09] LABS: Anion Gap 11 (5-15); BUN 16 mg/dL (7-18); Calcium,Total 8.1 mg/dL (8.5-10.1); Chloride 107 mmol/L (98-107); Creatinine, Serum 0.84 mg/dL (0.55-1.02); EST Glomerular Filtration Rate 70 mL/min (>60); Est Glom Filt Rate - Afr Amer 85 mL/min (>60); Estimated Creatinine Clearance 47.13 ml/min; Glucose 199 mg/dL (74-106); Magnesium 1.7 mg/dL (1.6-2.6); Potassium 3.4 mmol/L (3.5-5.1); Sodium Level 138 mmol/L (136-145)
[2022-07-18 10:33] LABS: Vancomycin, Trough Level 7.6 ug/mL (5.0-15.0)
--- NOTE | 2022-07-18 10:48 | CASEMGMT ---
Pt has FWW delivered, still denying homegoing needs. Pt denies having oxygen at home.
--- NOTE | 2022-07-18 11:07 | PCM.RX.CS ---
Consult Pharmacy has been consulted to manage selected antiobiotic: Vancomycin Type of Consult: Follow-up Suspected Infection: Skin/Soft tissue Labs: Sodium 138 mmol/L (136-145) 07/18/22 09:18 Potassium 3.4 mmol/L (3.5-5.1) L 07/18/22 09:18 Chloride 107 mmol/L (98-107) 07/18/22 09:18 Carbon Dioxide 20.0 mmol/L (21.0-32.0) L 07/18/22 09:18 Anion Gap 11 (5-15) 07/18/22 09:18 BUN 16 mg/dL (7-18) 07/18/22 09:18 Creatinine 0.84 mg/dL (0.55-1.02) 07/18/22 09:18 Est GFR (MDRD) Af Amer 85 mL/min (>60) 07/18/22 09:18 Est GFR (MDRD) Non-Af 70 mL/min (>60) 07/18/22 09:18 BUN/Creatinine Ratio 19.0 RATIO (10-20) 07/18/22 09:18 Glucose 199 mg/dL (74-106) H 07/18/22 09:18 Vancomycin Trough 7.6 ug/mL (5.0-15.0) 07/18/22 09:18 Microbiology: Microbiology 07/13/22 08:40 Blood Culture (Wb) - Right Forearm Blood Culture - Final No growth in 5 days. 07/13/22 08:30 Blood Culture (Wb) - Left Forearm Blood Culture - Final No growth in 5 days. 07/13/22 04:30 Urine, Clean Catch Urine Culture - Final Escherichia coli Goal Trough: 10-15 mcg/mL Pharmacy Plan for Drug Dosing: VANCOMYCIN LEVEL RECEIVED Current Vancomycin Dose: 1500mg q24h(10:00) Number of Doses Received: x1 loading dose, x1 1500mg doses Vancomycin Level: 7.6 Hours Since Last Dose: 23 hours Renal Function: SrCr 0.86 Renal Function Trend: stable Lab/Micro: Vancomycin Plan/Comments: resulted trough of 7.6 is within the ordered goal trough range of 10-15. recommend continuing current dose of 1500mg q24h and checking a trough in 3 more doses Pending Level: 07/21/22 at 0930 Pharmacy Service will continue to monitor and adjust dosing as required. Follow-Up Labs: Trough Vancomycin - 07/21/22 at 0930
[2022-07-18 12:30] LABS: Bedside Glucose 185 mg/dL (74-106)
== END 2022-07-18 13:56 | disposition home or self-care (01) | DRG 872 ==
LOC: ED 08:20 → MS3 08:24
PROVIDERS: Admitting Provider Family Medicine; Emergency Provider Emergency Medicine; PCP Family Medicine; Visit Provider Internal Medicine
DX: A41.9 Sepsis, unspecified organism (principal); E87.20 Acidosis, unspecified; L03.312 Cellulitis of back [any part except buttock and flank]; N30.00 Acute cystitis without hematuria; K57.32 Diverticulitis of large intestine without perforation or abscess without bleeding; E11.9 Type 2 diabetes mellitus without complications; E87.6 Hypokalemia; B96.20 Unspecified Escherichia coli [E. coli] as the cause of diseases classified elsewhere; K76.0 Fatty (change of) liver, not elsewhere classified; Z79.84 Long term (current) use of oral hypoglycemic drugs
CPT/HCPCS: 36415; 71045; 74176; 74177; 80048; 80202; 81001; 82962; 83605; 83735; 84100; 85025; 87040; 87077; 87086; 87088; 87186; 93005; 97110; 97162; 97166; 97530; 97535; 99285; J7030; J7040; J7050; Q9967; A4216; J0744; J2405; J3490